=== PATIENT | male | born 1995 | race Caucasian/White ===

== ENCOUNTER 2018-07-26 00:28 | Emergency (ER) | payer OTHER ==
[~2018-07-26] VITALS: Ht 185.4 cm; Wt 113.4 kg
[2018-07-26 00:28] VITALS: BP 124/71
[2018-07-26] MEDS ORDERED: NS 1000ML 1,000 ML IV STA (00:40)
[2018-07-26] MEDS ORDERED: MORPHINE SULFATE IV STA (00:40)
[2018-07-26] MEDS ORDERED: ZOFRAN IV STA (00:40)
[2018-07-26] MEDS ORDERED: NS 1000ML 1,000 ML ONE (00:51)
[2018-07-26] MEDS ORDERED: MORPHINE SULFATE ONE (00:52)
[2018-07-26] MEDS ORDERED: ZOFRAN ONE (00:52)
[2018-07-26 01:10] LABS: BASOPHIL # 0.1 10^3/uL (0.0-0.1); EOSINOPHIL # 0.1 10^3/uL (0.0-0.2); EOSINOPHIL % 0.9 % (0.0-5.0); LYMPHOCYTES # 2.7 10^3/uL (1.0-4.8); LYMPHOCYTES % 38.1 % (24.0-44.0); MEAN CELL HGB 30.4 pg (26-34); MEAN CELL HGB CONCENTRATION 34.6 g/dL (33-37); MEAN CORP VOLUME 87.7 fL (78-100); MEAN PLATELET VOLUME 9.1 fL (7.8-11.0); MONOCYTES # 0.5 10^3/uL (0.3-0.8); MONOCYTES % 7.4 % (5.0-12.0); NEUTROPHIL # 3.7 10^3/uL (1.8-7.7); NEUTROPHILS % 52.6 % (41.0-85.0); PLATELET COUNT 264 10^3/uL (150-400); RED CELL DISTRIBUTION WIDTH 12.9 % (11.5-14.5)
--- NOTE | 2018-07-26 01:11 | ER.PDOC ---
General Chief Complaint: Requesting Medical Care Stated Complaint: ABD PAIN Time seen by MD: 00:50 Source: patient Exam Limitations: no limitations History of Present Illness Initial Comments 22 y/o male with hx to ED with off and on abd pain x 1 month. Tonight had increased abd pain with diarrhea, drank 1/2 fifth bourbon, did not help pain. Has nausea, no vomit, has not seen his PCP, patient thinks is from anxiety Timing/Duration: other Severity/Quality: severe, cramping Radiation: periumbilical Associated Symptoms: diarrhea Exacerbated by: nothing Relieved By: nothing Allergies: Coded Allergies: Penicillins (Verified Allergy, Unknown, Rash, 07/26/18) Past Medical History Medical History: no pertinent history Surgical History: no surgical history Family History Significant Family History: no pertinent family hx Social History Alcohol Use: heavy Drug Use: none Reviewed Nursing Reviewed: Vital Signs, Abn. Noted, Nursing Assessment Constitutional: no symptoms reported EENTM: no symptoms reported Respiratory: no symptoms reported Cardiovascular: no symptoms reported Gastrointestinal: abdominal pain, diarrhea Genitourinary: no symptoms reported Musculoskeletal: no symptoms reported Skin: no symptoms reported Psychiatric/Neurological: no symptoms reported Endocrine: no symptoms reported Hematologic/Lymphatic: no symptoms reported All Other Systems: Reviewed and Negative Physical Exam General Appearance: Anxious, Severe Distress HEENT: PERRL/EOMI, Normal ENT Inspection, TMs Normal, Pharynx Normal Neck: Non-Tender, Full Range of Motion, Supple, Normal Inspection Respiratory: chest non-tender, lungs clear, normal breath sounds, no respiratory distress, no accessory muscle use Cardiovascular: Normal Peripheral Pulses, Regular Rate, Rhythm, No Edema, No Gallop, No JVD, No Murmur Gastrointestinal: No Pulsatile Mass, Tenderness Back: Normal Inspection, No CVA Tenderness, No Vertebral Tenderness Extremities: Normal Range of Motion, Non-Tender, Normal Inspection, No Pedal Edema, No Calf Tenderness, Normal Capillary Refill, Pelvis Stable Neurologic/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 Progress Progress Called into room, patient upset and wants to leave ama, mom and family in room, patient demanding more ativan , patient states abd pain gone offered meds other then ativan or valium, patient refused and wants to leave ama. Patient does have the capacity to understand and refuses to wait for diet sheet or Rx for bentyl or zofran. Mom tried to get patient to stay, mom signed ama form, patient went home with mom. EKG/XRAY/CT/US CT Comments: Ct abd /pelvis - neg study Departure Time of Disposition: 03:30 Disposition: 07 AGAINST MEDICAL ADVICE Impression: Primary Impression: Abdominal pain Additional Impressions: Diarrhea Alcohol intoxication Condition: Against Medical Advice Referrals: PCP,UNKNOWN (PCP) PRIMARY CARE PROVIDER Duration or Time Spent with Pa: 45 min Problem Qualifiers ERICA COTO DO Jul 26, 2018 01:11
[2018-07-26] MEDS ORDERED: ATIVAN IV STA (01:15)
[2018-07-26] MEDS ORDERED: ATIVAN ONE (01:15)
[2018-07-26 01:26] LABS: BILIRUBIN,URINE NEGATIVE (NEGATIVE); UROBILINOGEN,URINE NORMAL (NEGATIVE)
[2018-07-26 01:30] LABS: CALCIUM 8.8 mg/dL (8.4-10.5)
[2018-07-26 01:30] LABS: APPEARANCE,URINE CLEAR (CLEAR); UA COLOR YELLOW (YELLOW)
[2018-07-26 01:42] VITALS: BP 163/93
[2018-07-26 03:01] VITALS: BP 122/72
--- NOTE | 2018-07-26 03:02 | NUR ---
CT PATIENT RETURNED TO ROOM FROM CT.
--- NOTE | 2018-07-26 03:15 | NUR ---
UPDATE PATIENT DESTINEE CAME OUT AND REPORTED THAT PATIENT WAS STILL IN A LOT OF PAIN AND VERY ANXIOUS. SPOKE WITH DR. COTO AND HE CAN ORDER BENADRYL TO HELP CALM HIM BUT SINCE HIS ALCOHOL LEVEL IS CRITICALLY HIGH WE CANT GIVE ANYMORE NARCOTICS FOR PAIN AT THIS TIME. WENT TO SPEAK WITH PATIENT AND FAMILY AND OFFERED BENADRYL TO HELP HIS ANXIETY. PATIENT BECAME VERY DEFENSIVE AND UPSET AND HE STARTED TO REMOVE MONITOR EQUIPMENT. HE SAID THAT HE WANTED TO LEAVE AND WAS GOING TO TAKE HIS IV OUT. ASKED HIM TO WAIT FOR CT RESULTS AND TRY THE BENADRYL. HE WAS STILL UPSET. NOTIFIED DR. COTO AND HE WILL TALK WITH PATIENT.
[2018-07-26 03:16] VITALS: BP 152/60
--- NOTE | 2018-07-26 03:25 | NUR ---
UPDATE DR. COTO AT BEDSIDE SPEAKING WITH PATIENT.
--- NOTE | 2018-07-26 03:26 | DIREP ---
PROCEDURE:CT ABDOMEN W/ CONTRAST COMPARISON:None. INDICATIONS:abd pain with diarrhea x 1 month TECHNIQUE:Axial images were created through the abdomen with non-ionic intravenous contrast material. No oral contrast was administered. Sagittal and coronal reconstructions were performed from source images. FINDINGS: LUNG BASES:No suspicious airspace consolidation or pleural effusion. LIVER:No suspicious focal hepatic lesion. BILIARY:The gallbladder is nondistended. No radiopaque calculi. No significant intrahepatic or extrahepatic biliary ductal dilatation. PANCREAS:No suspicious pancreatic abnormality. SPLEEN:The spleen is not significantly enlarged. No focal splenic lesion identified. ADRENALS:The adrenal glands are unremarkable. URINARY TRACT:No hydronephrosis or suspicious renal lesion. AORTA/VASCULAR:No aneurysmal dilatation. RETROPERITONEUM:No suspicious retroperitoneal lymphadenopathy. BOWEL/MESENTERY:No evidence for small bowel obstruction. No gross abnormality of the imaged colon. The appendix is believed to be identified and appears within normal limits. No free air. ABDOMINAL WALL:No significant hernia. BONES:No acute abnormality. CONCLUSION: 1. No acute intra-abdominal abnormality is identified. No gross abnormality of the imaged colon. The appendix is believed to be identified and appears within normal limits. 2. Additional findings as discussed above. Dictated by: Reynaldo Latif M.D. On 07/26/2018 at 03:20 AM
--- NOTE | 2018-07-26 03:30 | NUR ---
AMA PATIENT REMAINS UPSET AND USING ABUSIVE LANGUAGE, RAISING HIS VOICE, AND WANTS TO LEAVE. CHILDREN'S SERVICE WORKER ARRIVED TO ROOM. HE STARTED TO TAKE IV OUT. I REMOVED IV FOR HIM AND APPLIED PRESSURE TO SITE AND APPLIED COBAN DRESSING. IV CATHETER WAS ALL INTACT. PATIENT DID NOT WANT TO WAIT FOR PRESCRIPTION AND TO BE DISCHARGED. PATIENT UP AND DRESSED AND MOTHER SIGNED AMA PAPER FOR PATIENT SINCE HE IS UNDER THE INFLUENCE OF ALCOHOL AND NARCOTICS. PATIENT LEFT UNIT WITH MOTHER, FIANCE, AND WITH CHILDREN'S SERVICE WORKER ESCORT.
[2018-07-26 04:03] VITALS: BP 152/60
== END 2018-07-26 03:30 | disposition left against medical advice (07) ==
LOC: ER 00:28 → EDBD 00:28 → ER 03:30
DX: F10.129 Alcohol abuse with intoxication, unspecified (principal); F41.9 Anxiety disorder, unspecified; R10.9 Unspecified abdominal pain; R19.7 Diarrhea, unspecified; Z88.0 Allergy status to penicillin; Y90.8 Blood alcohol level of 240 mg/100 ml or more
CPT/HCPCS: 36415; 74160; 80053; 80307 ×2; 81000; 83690; 85025; 96361; 96374; 96375; 99284; J2060; J2270; J2405; J7030; Q9965

== ENCOUNTER 2020-08-16 10:43 | Emergency (ER) | payer OTHER ==
[~2020-08-16] VITALS: Ht 188 cm; Wt 113.4 kg
[2020-08-16 10:52] VITALS: BP 157/97
[2020-08-16] MEDS ORDERED: NS 1000ML 1,000 ML ONE (11:02)
[2020-08-16] MEDS ORDERED: TORADOL ONE (11:02)
[2020-08-16] MEDS ORDERED: ZOFRAN ONE (11:02)
[2020-08-16] MEDS ORDERED: NS 100ML 100 ML IV ONE (11:04)
[2020-08-16] MEDS ORDERED: KEPPRA PO STA (11:06)
[2020-08-16] MEDS ORDERED: TORADOL IV STA (11:06)
[2020-08-16] MEDS ORDERED: ZOFRAN IV STA (11:06)
--- NOTE | 2020-08-16 11:08 | ER.PDOC ---
General Chief Complaint: Requesting Medical Care Stated Complaint: SEIZURE Time seen by MD: 11:11 Source: patient Exam Limitations: no limitations History of Present Illness Timing/Onset/Duration: Multiple Episodes Preceding Symptoms/Context: none Character Of Seizures: lost consciousness, partially Motor Activity: shaking all over Post-ictal Symptoms: confusion, headache Injury: none Prior symptoms/Treatment: Similar symptoms previous Allergies: Coded Allergies: Penicillins (Verified Allergy, Unknown, Rash, 07/26/18) Past Medical History Surgical History: no surgical history Family History Significant Family History: no pertinent family hx Social History Drug Use: none Reviewed Nursing Reviewed: Vital Signs, Abn. Noted All Other Systems: Reviewed and Negative Physical Exam General Appearance: alert, no distress EENT: nml eye inspection, PERRL, no nystagmus, nml ENT inspection, no apparent, pharynx nml, no CSF leak Neck/Back: neck supple, non-tender Respiratory: no resp distress, breath sounds nml, no evidence of rib injury CVS: reg rate & rhythm, heart sounds nml Abdomen: non-tender, no organomegaly, no distention Skin: color nml, no rash, warm/dry Extremities: non-tender, nml ROM, no pedal edema Neuro/Psych: oriented x 3, speech nml, mood/affect nml Cerebellar: nml tested, nml Romberg Sensorimotor: no motor deficit, no sensory deficit, reflexes nml Results/Orders Results/Orders Orders - ARDEN RIZO MD Cbc With Auto Diff (08/16/20 11:03) Comprehensive Metabolic Panel (08/16/20 11:03) Creatine Kinase (08/16/20 11:03) PT (08/16/20 11:03) Xr Chest 1v (08/16/20 11:03) Partial Thromboplastin Time. (08/16/20 11:03) Troponin I (08/16/20 11:03) Urinalysis (08/16/20 11:03) Ekg-Routine (08/16/20 11:03) Ct Head Wo Contrast (08/16/20 11:03) Drug Scrn Med W Confirmation (08/16/20 11:03) Levetiracetam (Keppra) (08/16/20 11:06) Ketorolac Tromethamine (Toradol) (08/16/20 11:06) Ondansetron Hcl/Pf (Zofran) (08/16/20 11:06) 0.9 % Sodium Chloride (Ns 1000ml) (08/16/20 11:30) Vital Signs Date Time Temp Pulse Resp B/P (MAP) Pulse Ox O2 Delivery O2 Flow Rate FiO2 08/16/20 10:52 99.5 108 16 08/16/20 10:52 99.5 108 16 157/97 (117) 94 Room Air 08/16/20 10:52 99.5 108 18 94 Administered Medications Medications (Trade) Dose Ordered Sig/Deion Route PRN Reason Start Time Stop Time Status Last Admin Dose Admin Ketorolac Tromethamine (Toradol) 30 mg STAT STAT IV 08/16/20 11:06 08/16/20 11:07 UNV 08/16/20 11:10 30 MG Levetiracetam (Keppra) 500 mg STAT STAT PO 08/16/20 11:06 08/16/20 11:07 UNV 08/16/20 11:11 500 MG Ondansetron HCl (Zofran) 4 mg STAT STAT IV 08/16/20 11:06 08/16/20 11:07 UNV 08/16/20 11:11 4 MG Sodium Chloride 1,000 ml @ 0 mls/hr Q0M ONCE IV 08/16/20 11:30 08/16/20 11:31 UNV 08/16/20 11:11 1,200 MLS/HR Laboratory Tests Test 08/16/20 11:05 White Blood Count 6.8 10^3/uL (4.5-11.0) Red Blood Count 5.55 10^6/uL (4.50-5.90) Hemoglobin 17.8 g/dL (13.9-16.3) H Hematocrit 50.5 % (37.0-53.0) Mean Corpuscular Volume 91.0 fL (78-100) Mean Corpuscular Hemoglobin 32.1 pg (26-34) Mean Corpuscular Hemoglobin Concent 35.2 g/dL (33-36.5) Red Cell Distribution Width 12.0 % (11.5-14.5) Platelet Count 312 10^3/uL (150-400) Mean Platelet Volume 9.2 fL (7.8-11.0) Neutrophils (%) (Auto) 49.0 % (41.0-85.0) Lymphocytes (%) (Auto) 40.5 % (24.0-44.0) Monocytes (%) (Auto) 7.0 % (5.0-12.0) Neutrophils # (Auto) 3.4 10^3/uL (1.8-7.7) Lymphocytes # (Auto) 2.77 10^3/uL1 (1.0-4.8) Monocytes # (Auto) 0.5 10^3/uL (0.3-0.8) Absolute Immature Granulocyte (auto 0.04 10^3 u/L (0-2) Absolute Eosinophils (auto) 0.1 10^3/uL (0.0-0.2) Immature Granulocytes % 0.60 % (0.00-0.50) H Eosinophils % 1.6 % (0.0-5.0) Basophils % 1.3 % (0.0-0.2) H Basophils # 0.1 10^3/uL (0.0-0.1) Prothrombin Time 10.3 SEC (9.3-11.3) Prothrombin Time INR (Non-Therap) 1.0 Activated Partial Thromboplast Time 21.2 SEC (24.67-30.72) Urine Collection Type UNKNOWN Urine Color YELLOW Urine Appearance CLEAR Urine Bilirubin NEGATIVE (NEGATIVE) Urine Ketones NEGATIVE (NEGATIVE) Urine Specific [place] >=1.030 (1.005-1.030) Urine pH 5.5 (4.5-8.0) Urine Protein 100 mg/dL (NEGATIVE) H Urine Urobilinogen 0.2 E.U./dL (0.2) Urine Nitrate NEGATIVE (NEGATIVE) Urine Leukocyte Esterase NEGATIVE (NEGATIVE) Urine Glucose (Auto)(UA) NEGATIVE (NEGATIVE) Urine Blood TRACE-INTACT (NEGATIVE) H Urine RBC NONE SEEN RBC/HPF (NONE Urine WBC 0-2 WBC/HPF (0-2) Urine Squamous Epithelial Cells RARE #/HPF (FEW) Urine Bacteria NONE SEEN (NONE SEEN) Urine Hyaline Casts 0-1 (NONE SEEN) Sodium Level 143 mmol/L (132-145) Potassium Level 3.6 mmol/L (3.6-5.2) Chloride Level 106.0 mmol/L (96-109) Carbon Dioxide Level 24.5 mmol/L (20.0-32) Anion Gap 16.1 Blood Urea Nitrogen 7 mg/dL (7-18) Creatinine 1.20 mg/dL (0.59-1.40) Estimated GFR () 89.3 (>/=60) Est GFR (CKD-EPI)(Non-Afr [place]e) 73.8 (>/=60) BUN/Creatinine Ratio 5.0 Glucose Level 104 mg/dL (70-110) Calcium Level 9.3 mg/dL (8.4-10.5) Total Bilirubin 0.6 mg/dL (0.2-1.0) Aspartate Amino Transferase (AST) 202 U/L (0-35) H Alanine Aminotransferase (ALT) 139 U/L (12-78) H Alkaline Phosphatase 92 U/L (50-136) Total Creatine Kinase 433 U/L (39-308) H Troponin I < 0.02 ng/mL (0.00-0.05) Total Protein 8.2 g/dL (6.4-8.2) Albumin 4.2 g/dL (3.4-5.0) Globulin 4.0 Albumin/Globulin Ratio 1.050 Urine Opiates Screen NEGATIVE (c/o300ng/mL) Urine Methadone Screen NEGATIVE (c/o300ng/mL) Urine Barbiturates Screen NEGATIVE (c/o200ng/mL) Urine Phencyclidine Screen NEGATIVE (c/o 25ng/mL) Ur Amphetamine/Methamphetamine NEGATIVE (uw2573fi/mL) Urine MDMA Screen (Ecstasy) NEGATIVE (c/o300ng/mL) Urine Benzodiazepines Screen NEGATIVE (c/o200ng/mL) Urine Cocaine Metabolite Screen NEGATIVE (c/o300ng/mL) Ur Tetrahydrocannabinol (THC) Scrn NEGATIVE (c/o 50ng/mL) ER DEPART Departure Time of Disposition: 12:00 Disposition: 01 HOME, SELF-CARE Impression: Primary Impression: Generalized seizure Condition: Improved Referrals: MELI BARNES (PCP) PRIMARY CARE PROVIDER Duration or Time Spent with Pa: 16m Return to Work/School Can a patient return to work?: No Can a patient return to school: No ARDEN RIZO MD Aug 16, 2020 11:08
[2020-08-16 11:13] LABS: BASOPHIL # 0.1 10^3/uL (0.0-0.1); BASOPHIL % 1.3 % (0.0-0.2); EOSINOPHIL # 0.1 10^3/uL (0.0-0.2); EOSINOPHIL % 1.6 % (0.0-5.0); LYMPHOCYTES # 2.77 10^3/uL1 (1.0-4.8); LYMPHOCYTES % 40.5 % (24.0-44.0); MEAN CORP HGB 32.1 pg (26-34); MONOCYTES # 0.5 10^3/uL (0.3-0.8); NEUTROPHIL # 3.4 10^3/uL (1.8-7.7); PLATELET COUNT 312 10^3/uL (150-400); UA COLOR YELLOW
[2020-08-16 11:14] LABS: BILIRUBIN,URINE NEGATIVE (NEGATIVE); UROBILINOGEN,URINE 0.2 E.U./dL (0.2)
--- NOTE | 2020-08-16 11:19 | PCM.EKG ---
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
--- NOTE | 2020-08-16 11:29 | DIREP ---
PROCEDURE:CT HEAD OR BRAIN W/O CONTRAST COMPARISON:None. INDICATIONS:seizures TECHNIQUE:CT images were created without intravenous contrast. FINDINGS: VENTRICLES:The ventricles are normal in size and configuration. CEREBRUM:Normal cerebral morphology with appropriate chavez white matter differentiation. CEREBELLUM:Negative. BRAINSTEM:Negative. BASAL CISTERNS:Negative. HEMORRHAGE:No MASS LESION:No ACUTE INFARCT:No SKULL:Normal. SINUSES:Normal. OTHER:None CONCLUSION:Normal examination. Dictated by: Florencio Huizar M.D. on 08/16/2020 at 11:26 AM
[2020-08-16] MEDS ORDERED: NS 1000ML 1,000 ML IV ONE (11:30)
--- NOTE | 2020-08-16 11:33 | DIREP ---
PROCEDURE:CHEST 1 VIEW COMPARISON:[facility], CR, CHEST 1 VIEW, 07/07/2014, 08:04 AM. INDICATIONS:seizures FINDINGS: LUNGS/PLEURA:No significant pulmonary parenchymal abnormalities. No effusions. VASCULATURE:Normal. Unremarkable pulmonary vasculature. CARDIAC:Normal. No cardiac silhouette abnormality or cardiomegaly. MEDIASTINUM:Normal. No visible mass or adenopathy. BONES:Normal. No fracture or visible bony lesion. OTHER:Negative. CONCLUSION:Normal examination. Dictated by: Florencio Huizar M.D. on 08/16/2020 at 11:31 AM
[2020-08-16 11:42] LABS: ALANINE AMINOTRANSFERASE(ML) 139 U/L (12-78); ALKALINE PHOSPHATASE 92 U/L (50-136); ASPARTATE AMINO TRANSFERASE 202 U/L (0-35); CALCIUM 9.3 mg/dL (8.4-10.5); CARBON DIOXIDE 24.5 mmol/L (20.0-32); GLUCOSE 104 mg/dL (70-110)
== END 2020-08-16 12:10 | disposition home or self-care (01) ==
LOC: ER 10:43
DX: R56.9 Unspecified convulsions (principal); Z79.1 Long term (current) use of non-steroidal anti-inflammatories (NSAID); Z79.899 Other long term (current) drug therapy; Z88.0 Allergy status to penicillin; R79.1 Abnormal coagulation profile
CPT/HCPCS: 36415; 70450; 71045; 80053; 80307; 81000; 82550; 84484; 85025; 85610; 85730; 93005; 96361; 96374; 96375; 99285; J1885; J2405; J7030; J7050; 81003; 99284

== ENCOUNTER 2020-11-10 05:07 | Emergency (ER) | payer OTHER ==
[~2020-11-10] VITALS: Ht 188 cm; Wt 104.3 kg
[2020-11-10 05:21] VITALS: BP 147/98
[2020-11-10] MEDS ORDERED: KEPPRA 100 ML IV STA (05:26)
--- NOTE | 2020-11-10 05:31 | ER.PDOC ---
General Chief Complaint: Seizure Stated Complaint: SEIZURE Time seen by MD: 05:30 Source: patient Exam Limitations: no limitations History of Present Illness Initial Comments Seizure this morning. By the time EMS arrived on scene, patient was postictal and by the time he was brought to emergency room, he is back to baseline Timing/Onset/Duration: Single Episode Preceding Symptoms/Context: recent alcohol intake Character Of Seizures: unknown Motor Activity: shaking all over Post-ictal Symptoms: confusion Injury: none Prior symptoms/Treatment: Similar symptoms previous, Recenly Seen, Treated by Doctor Allergies: Coded Allergies: Penicillins (Verified Allergy, Unknown, Rash, 07/26/18) Past Medical History Medical History: other Surgical History: no surgical history Family History Significant Family History: no pertinent family hx Social History Smoking: non-smoker Alcohol Use: occassionally Drug Use: none, other Constitutional: no symptoms reported EENTM: no symptoms reported Respiratory: no symptoms reported Cardiovascular: no symptoms reported Gastrointestinal: no symptoms reported All Other Systems: Reviewed and Negative Physical Exam General Appearance: alert, no distress EENT: nml eye inspection, PERRL, no nystagmus, nml ENT inspection, no apparent, pharynx nml, no CSF leak Neck/Back: neck supple, non-tender Respiratory: no resp distress, breath sounds nml, no evidence of rib injury CVS: reg rate & rhythm, heart sounds nml Abdomen: non-tender, no organomegaly, no distention Skin: color nml, no rash, warm/dry Extremities: non-tender, nml ROM, no pedal edema Neuro/Psych: oriented x 3, speech nml, mood/affect nml Sensorimotor: no motor deficit, no sensory deficit, reflexes nml Results/Orders Results/Orders Orders - STEFAN HENSLEY MD Cbc With Auto Diff (11/10/20 05:26) Comprehensive Metabolic Panel (11/10/20 05:26) Alcohol(Ml) (11/10/20 05:26) Drug Scrn Med W Confirmation (11/10/20 05:26) Levetiracetam In Nacl (Iso-Os) (Keppra) (11/10/20 05:26) Ct Head Wo Contrast (11/10/20 05:29) Levetiracetam In Nacl (Iso-Os) (Keppra) (11/10/20 05:33) 0.9 % Sodium Chloride (Ns 1000ml) (11/10/20 06:22) Vital Signs Date Time Temp Pulse Resp B/P (MAP) Pulse Ox O2 Delivery O2 Flow Rate FiO2 11/10/20 06:10 98.0 91 18 130/90 (103) 100 11/10/20 05:21 97.8 90 20 147/98 (114) 96 11/10/20 05:21 97.8 90 20 Laboratory Tests Test 11/10/20 05:36 White Blood Count 6.8 10^3/uL (4.5-11.0) Red Blood Count 5.06 10^6/uL (4.50-5.90) Hemoglobin 16.2 g/dL (13.9-16.3) Hematocrit 46.5 % (37.0-53.0) Mean Corpuscular Volume 91.9 fL (78-100) Mean Corpuscular Hemoglobin 32.0 pg (26-34) Mean Corpuscular Hemoglobin Concent 34.8 g/dL (33-36.5) Red Cell Distribution Width 11.9 % (11.5-14.5) Platelet Count 242 10^3/uL (150-400) Mean Platelet Volume 8.9 fL (7.8-11.0) Neutrophils (%) (Auto) 50.1 % (41.0-85.0) Lymphocytes (%) (Auto) 38.1 % (24.0-44.0) Monocytes (%) (Auto) 7.9 % (5.0-12.0) Neutrophils # (Auto) 3.4 10^3/uL (1.8-7.7) Lymphocytes # (Auto) 2.60 10^3/uL1 (1.0-4.8) Monocytes # (Auto) 0.5 10^3/uL (0.3-0.8) Absolute Immature Granulocyte (auto 0.02 10^3 u/L (0-2) Absolute Eosinophils (auto) 0.2 10^3/uL (0.0-0.2) Immature Granulocytes % 0.30 % (0.00-0.50) Eosinophils % 2.3 % (0.0-5.0) Basophils % 1.6 % (0.0-0.2) H Basophils # 0.1 10^3/uL (0.0-0.1) Sodium Level 141 mmol/L (132-145) Potassium Level 3.6 mmol/L (3.6-5.2) Chloride Level 104.0 mmol/L (96-109) Carbon Dioxide Level 23.3 mmol/L (20.0-32) Anion Gap 17.3 Blood Urea Nitrogen 6 mg/dL (7-18) L Creatinine 1.13 mg/dL (0.59-1.40) Estimated GFR () 94.9 (>/=60) Est GFR (CKD-EPI)(Non-Afr [place]) 78.4 (>/=60) BUN/Creatinine Ratio 5.0 Glucose Level 99 mg/dL (70-110) Calcium Level 8.7 mg/dL (8.4-10.5) Total Bilirubin 0.7 mg/dL (0.2-1.0) Aspartate Amino Transferase (AST) 297 U/L (0-35) H Alanine Aminotransferase (ALT) 131 U/L (12-78) H Alkaline Phosphatase 91 U/L (50-136) Total Protein 7.9 g/dL (6.4-8.2) Albumin 4.1 g/dL (3.4-5.0) Globulin 3.8 Albumin/Globulin Ratio 1.078 Urine Opiates Screen NEGATIVE (c/o300ng/mL) Urine Methadone Screen NEGATIVE (c/o300ng/mL) Urine Barbiturates Screen NEGATIVE (c/o200ng/mL) Urine Phencyclidine Screen NEGATIVE (c/o 25ng/mL) Ur Amphetamine/Methamphetamine NEGATIVE ([id number]/mL) Urine MDMA Screen (Ecstasy) NEGATIVE (c/o300ng/mL) Urine Benzodiazepines Screen NEGATIVE (c/o200ng/mL) Urine Cocaine Metabolite Screen NEGATIVE (c/o300ng/mL) Ur Tetrahydrocannabinol (THC) Scrn NEGATIVE (c/o 50ng/mL) Serum Alcohol 319 mg/dL (0-50) H Progress Progress Patient refused to wait for the report after CT head was done. He signed and left AGAINST MEDICAL ADVICE. He understands that leaving AGAINST MEDICAL ADVICE may result in worsening condition and . Labs reviewed with him. He is intoxicated with alcohol. He went home with his fiance who was present in the room. ER DEPART Departure Time of Disposition: 06:56 Disposition: 07 LEFT AGAINST MEDICAL ADVICE Impression: Primary Impression: Seizure Additional Impression: Alcohol intoxication Condition: Against Medical Advice Referrals: MELI BARNES (PCP) PRIMARY CARE PROVIDER Duration or Time Spent with Pa: 45 min Problem Qualifiers Additional Impression: Alcohol intoxication Complication of substance-induced condition: with unspecified complication Qualified Codes: F10.929 - Alcohol use, unspecified with intoxication, unspecified STEFAN HENSLEY MD Nov 10, 2020 05:31
[2020-11-10] MEDS ORDERED: KEPPRA 100 ML IV ONE (05:33)
[2020-11-10 05:47] LABS: BASOPHIL # 0.1 10^3/uL (0.0-0.1); BASOPHIL % 1.6 % (0.0-0.2); EOSINOPHIL # 0.2 10^3/uL (0.0-0.2); EOSINOPHIL % 2.3 % (0.0-5.0); LYMPHOCYTES % 38.1 % (24.0-44.0); MONOCYTES # 0.5 10^3/uL (0.3-0.8); MONOCYTES % 7.9 % (5.0-12.0); NEUTROPHIL # 3.4 10^3/uL (1.8-7.7); NEUTROPHILS % 50.1 % (41.0-85.0); PLATELET COUNT 242 10^3/uL (150-400); RED CELL DISTRIBUTION WIDTH 11.9 % (11.5-14.5)
[2020-11-10 06:01] LABS: CALCIUM 8.7 mg/dL (8.4-10.5); CARBON DIOXIDE 23.3 mmol/L (20.0-32)
[2020-11-10 06:10] VITALS: BP 130/90
--- NOTE | 2020-11-10 06:12 | NUR ---
ALCOHOL 319, EDP NOTIFIED
[2020-11-10] MEDS ORDERED: NS 1000ML 1,000 ML IV STA (06:22)
--- NOTE | 2020-11-10 06:44 | DIREP ---
PROCEDURE:CT HEAD OR BRAIN W/O CONTRAST COMPARISON:[facility], CT, CT HEAD BRAIN W/O CONTRAST, 08/16/2020, 11:25 AM. INDICATIONS:Seizure TECHNIQUE:Axial CT images were obtained from vertex to the skull base without the administration of IV contrast. FINDINGS: VENTRICLES: The ventricles are normal in size and configuration. No hydrocephalus. CEREBRUM: Normal cerebral morphology with appropriate chavez white matter differentiation. No intracranial hemorrhage, mass-effect, or midline shift. No CT evidence of acute infarction. CEREBELLUM: Normal. BRAINSTEM: Normal. BASAL CISTERNS: Normal. SKULL: Normal. No fracture. SINUSES: Moderate mucosal thickening in the superior aspect of the left maxillary sinus. Mild mucosal thickening in the bilateral ethmoid air cells, superior right maxillary sinus. Minimal mucosal thickening in the sphenoid air cells. Visualized paranasal sinuses and mastoid air cells are otherwise clear. No fluid levels. OTHER: None CONCLUSION: 1. No acute intracranial abnormality. 2. [id number] paranasal sinus mucosal thickening, as above. No fluid levels. Dictated by: Reynaldo Ramos MD on 11/10/2020 at 06:40 AM
--- NOTE | 2020-11-10 06:46 | NUR ---
AMA PT REQUESTING TO LEAVE AMA. PT INFORMED OF RISKS OF LEAVING AMA AND PT AND SPOUSE VERBALIZED UNDERSTANDING. PT SIGNED AMA FORM.
== END 2020-11-10 06:46 | disposition left against medical advice (07) ==
LOC: ER 05:07 → EDBD 05:07 → ER 06:46
DX: R56.9 Unspecified convulsions (principal); F10.129 Alcohol abuse with intoxication, unspecified; Z88.0 Allergy status to penicillin; Y90.8 Blood alcohol level of 240 mg/100 ml or more
CPT/HCPCS: 36415; 70450; 80053; 80307; 82077; 85025; 99284; J1953